=== PATIENT | male | born 1960 | race Caucasian/White ===

== ENCOUNTER 2017-11-21 06:09 | Day surgery (SDC) | payer BC ==
[~2017-11-21 06:09] MED LIST: LACTATED RINGERS 1,000 ML ONE
[2017-11-21] MEDS ORDERED: PROPOFOL 200 MG/20 ML VIAL IV ONE (10:00)
[2017-11-21 10:55] VITALS: TEMP 96.8; O2SAT 98
--- NOTE | 2017-11-21 10:58 | OP ---
DATE OF PROCEDURE: 11/21/17 PREOPERATIVE DIAGNOSIS: 1. High risk screening, family history of colon cancer. POSTOPERATIVE DIAGNOSIS: 1. Colonic polyps. 2. Grade 3 internal hemorrhoids. PROCEDURE: 1. Colonoscopy with polypectomy. SURGEON: Jon Milan MD ANESTHESIA: Monitored anesthesia care. ESTIMATED BLOOD LOSS: Less than 5 mL. COMPLICATIONS: No immediate complications. PROCEDURE: The patient was placed in the left lateral decubitus position. After deep sedation was achieved with monitored anesthesia care, the Olympus colonoscope was inserted through the anus. into the rectum and advanced to the cecum under direct visualization without difficulty. The terminal ileum was intubated. Photodocumentation of the terminal ileum, appendiceal orifice and ileocecal valve was performed. The endoscope was then progressively withdrawn and the total colonic lumen evaluated. Retroflexion was performed in the rectum. The endoscope was then withdrawn and the procedure terminated. The patient tolerated the procedure well with no immediate complications. FINDINGS: One polyp in the cecum, measuring 4 mm, sessile in nature. This polyp was removed with the cold snare in total and retrieved for pathology. Another polyp was found in the sigmoid colon, measuring 3 mm, sessile in nature. This polyp was removed with the cold snare and in retrieved in total for pathology. Internal hemorrhoids were seen in retroflexion, grade 3, non- bleeding. The exam was otherwise unremarkable. IMPRESSION: 1. Colonic polyps status post polypectomy. 2. Grade 3 internal hemorrhoids. RECOMMENDATIONS: 1. Await pathology results. 2. Repeat colonoscopy in five years. 3. Recommend dietary fiber supplementation and Preparation H as needed for hemorrhoids. 4. Followup with primary care physician as previously scheduled, followup with [place] as needed. #[id number] [facility]
[2017-11-21 13:54] VITALS: BP 127/80
== END 2017-11-21 10:00 | disposition home or self-care (01) ==
LOC: AMB 06:09
PROVIDERS: ATTEND Internal Medicine Gastroenterology
DX: Z12.11 Encounter for screening for malignant neoplasm of colon (principal); D12.0 Benign neoplasm of cecum; D12.5 Benign neoplasm of sigmoid colon; K64.2 Third degree hemorrhoids; Z80.0 Family history of malignant neoplasm of digestive organs; Z96.642 Presence of left artificial hip joint
CPT/HCPCS: 00812; 45385; J3490; J7120